=== PATIENT | female | born 1975 | race Caucasian/White ===

== ENCOUNTER 2020-06-21 14:45 | Outpatient (CLI) | payer OTHER, SELFPAY ==
--- NOTE | 2020-06-21 14:50 | MM_ITS ---
WS: [id number] BILATERAL DIGITAL SCREENING MAMMOGRAPHY WITH CAD CLINICAL INFORMATION: SCREENING HISTORY: Screening mammogram. No current complaints. COMPARISON: May 14, 2019 TECHNIQUE: Bilateral CC and MLO views. FINDINGS: Scattered fibroglandular densities bilaterally. No suspicious focal mass, asymmetry, calcifications, or architectural distortion. No evidence of malignancy. Previously described stable 9 mm asymmetric d ensity posterior depth superior left breast is stable. MM/[id number] IMPRESSION: BI-RADS: 2-Benign FOLLOW UP: 1 Year Follow-up Recommend return to annual screening mammography.
== END 2020-06-21 14:46 | disposition home or self-care (01) ==
LOC: RADSHAW 14:48
PROVIDERS: PCP Internal Medicine; Visit Provider Internal Medicine
DX: Z12.31 Encounter for screening mammogram for malignant neoplasm of breast (principal)
CPT/HCPCS: 77067

== ENCOUNTER 2021-07-27 13:16 | Outpatient (CLI) | payer OTHER, SELFPAY ==
--- NOTE | 2021-07-27 13:18 | MM_ITS ---
WS: [id number] BILATERAL SCREENING DIGITAL MAMMOGRAM WITH CAD HISTORY: SCREENING COMPARISON: 06/21/2020, 05/14/2019 and 04/15/2015 Bilateral CC and MLO views submitted. Computer aided detection analyzed. Breast composition: There are scattered areas of fibroglandular density. No suspicious masses, microc alcifications or architectural distortion. There is a nodule near 12:00 of the LEFT breast which is s table over multiple prior years. MM/[id number] IMPRESSION: BI-RADS: 2-Benign FOLLOW UP: 1 Year Follow-up
== END 2021-07-27 13:17 | disposition home or self-care (01) ==
LOC: RADSHAW 13:17
PROVIDERS: PCP Internal Medicine; Visit Provider Internal Medicine
DX: Z12.31 Encounter for screening mammogram for malignant neoplasm of breast (principal)
CPT/HCPCS: 77067

== ENCOUNTER 2022-08-10 11:55 | Outpatient (CLI) | payer OTHER, SELFPAY ==
--- NOTE | 2022-08-10 12:09 | MM_ITS ---
WS: [id number] BILATERAL SCREENING DIGITAL TOMOSYNTHESIS MAMMOGRAM WITH CAD HISTORY: SCREENING COMPARISON: 05/25/2017, 05/02/2017, 06/21/2020 and 07/27/2021 Bilateral CC and MLO views with tomosynthesis and synthetic mammography submitted. Computer aided det ection analyzed. Breast composition: There are scattered areas of fibroglandular density. No suspicious masses, microc alcifications or architectural distortion. Nodule at 12:00 mid LEFT breast has been stable since at l 2016. MM/[id number] IMPRESSION: BI-RADS: 2-Benign FOLLOW UP: 1 Year Follow-up
== END 2022-08-10 11:56 | disposition home or self-care (01) ==
LOC: RAD 11:57
PROVIDERS: PCP Internal Medicine; Visit Provider Nurse Practitioner Women's Health
DX: Z12.31 Encounter for screening mammogram for malignant neoplasm of breast (principal)
CPT/HCPCS: 77063; 77067

== ENCOUNTER → 2022-08-17 09:00 | Outpatient (BNVA) | payer OTHER, SELFPAY | PROVIDERS: PCP Internal Medicine; Visit Provider Nurse Practitioner Women's Health | DX: Z12.4 Encounter for screening for malignant neoplasm of cervix (principal) | CPT/HCPCS: 87624 ==

== ENCOUNTER 2023-08-13 07:52 | Outpatient (CLI) | payer OTHER, SELFPAY ==
--- NOTE | 2023-08-13 07:55 | MM_ITS ---
WS: [id number] SCREENING DIGITAL TOMOSYNTHESIS MAMMOGRAM WITH CAD HISTORY: SCREENING COMPARISON: 08/10/2022, 07/27/2021 and 05/14/2019 Bilateral CC and MLO with tomosynthesis views submitted. Synthetic mammography reviewed. Computer aid ed detection analyzed. Breast composition: There are scattered areas of fibroglandular density. No suspicious masses, microc alcifications or architectural distortion. New coarse cluster of calcifications in the medial LEFT br east at 9:00. Very benign in appearance. IMPRESSION: MM/[place] [id number] BI-RADS: 2-Benign FOLLOW UP: 1 Year Follow-up
== END 2023-08-13 07:53 | disposition home or self-care (01) ==
LOC: RAD 07:52
PROVIDERS: PCP Internal Medicine; Visit Provider Internal Medicine
DX: Z12.31 Encounter for screening mammogram for malignant neoplasm of breast (principal)
CPT/HCPCS: 77063; 77067

== ENCOUNTER → 2023-09-06 11:05 | Outpatient (BNVA) | payer OTHER, SELFPAY | PROVIDERS: PCP Internal Medicine; Visit Provider Nurse Practitioner Women's Health | DX: N93.9 Abnormal uterine and vaginal bleeding, unspecified (principal); Z13.21 Encounter for screening for nutritional disorder; Z01.419 Encounter for gynecological examination (general) (routine) without abnormal findings | CPT/HCPCS: 82306; 84443; 85025 ==

== ENCOUNTER → 2023-09-19 11:16 | Outpatient (BNVA) | payer OTHER, SELFPAY | PROVIDERS: PCP Internal Medicine; Visit Provider Nurse Practitioner Women's Health | DX: N93.9 Abnormal uterine and vaginal bleeding, unspecified (principal); N85.2 Hypertrophy of uterus; D25.1 Intramural leiomyoma of uterus; R93.89 Abnormal findings on diagnostic imaging of other specified body structures; N83.201 Unspecified ovarian cyst, right side | CPT/HCPCS: 76830 ==

== ENCOUNTER → 2023-09-28 14:03 | Outpatient (BNVA) | payer OTHER, SELFPAY | PROVIDERS: PCP Internal Medicine; Visit Provider Nurse Practitioner Women's Health | DX: N93.9 Abnormal uterine and vaginal bleeding, unspecified (principal) | CPT/HCPCS: 88305 ==

== ENCOUNTER 2023-11-20 19:01 | Observation (INO) | payer OTHER, SELFPAY ==
[2023-11-16 10:13] LABS: OR HCG Qualitative Urine Negative (Negative)
--- NOTE | 2023-11-16 10:19 | ANES.PREANE2 ---
Pre-Anesthetic Assessment Height/Weight: Height 1.63 m Operation Date: 11/20/23 14:10 Proposed Procedures p Total vaginal hysterectomy, bilateral salpingo-oophorectomy 48867, single incision sling 04867, N93.9,N85.2, N39.3(Not Applicable) - Chuy Riojas MD s Salpingo-Oophorectomy (Vaginal)(Not Applicable) - Chuy Riojas MD s Sling Single Incision Sling(Not Applicable) - Chuy Riojas MD Familial anesthetic complications: None Was Beta Annie taken within 24 hours: N/A Was Clonidine taken within 24 hours: N/A Last intake: > 8 hrs Social No alcohol and No tobacco Exam alert, oriented x 3, clear to auscultation bilaterally and regular rate & rhythm Airway Mallampati: Class II Dentition: full Musc/skel fibroids Anesthetic Plan ASA status: 2 Anesthesia: General Risk of > 500 ml blood loss (7ml/kg in children): No Medications/Allergies Home Medications Medication Instructions Recorded Confirmed Last Taken Type fexofenadine 180 mg tablet 180 mg PO DAILY 06/24/20 11/16/23 11/16/23 History (Vanessa Allergy) ibuprofen 800 mg tablet 800 mg PO TID PRN Pain 06/24/20 11/16/23 Unknown History multivitamin 1 tab PO DAILY 06/24/20 11/16/23 11/16/23 History norethindrone acetate 5 mg tablet 5 mg PO DAILY #90 tabs 09/28/23 11/16/23 11/16/23 Rx calcium carb-ergocalciferol (vit 1 tab PO DAILY 11/16/23 11/16/23 11/16/23 History D2) 600 mg calcium-200 unit tablet Allergies Allergy/AdvReac Type Severity Reaction Status Date / Time metronidazole [From Flagyl] Allergy rash Verified 11/16/23 09:30 [facility] Anesthesia Medical History No pertinent past medical history neghx: htn,dm,thyroid,dvt/pe PCP: Nancy Abnormal uterine bleeding Depression Anemia Surgical History Hx of dilation and curettage (~2003) of uterus-- 2003-Performed at [facility] Hx of breast biopsy (~09/2010) Left-- 09/2010- Performed at [facility] in [place], [place] Benign per pt Hx of bilateral breast reduction surgery (~11/2011) Performed in [place], [place] at [facility] Hx of tubal ligation (~10/02/06) Bilateral tubal ligation Dx: multiparity PP with unwanted fertility. Performed by Dr Geller at [facility] in [place], [place]. Hx of wisdom tooth extraction Family History Family/Other Diabetes Maternal Aunt, Maternal Uncle Grandfather Heart disease Maternal Stroke Maternal Mother Hypertension Denies family history of Colon cancer Ovarian cancer Hypercholesteremia Breast cancer Uterine cancer Thyroid disease Female Reproductive History Date of last menstrual period: 10/25/23 Data Anesthesia Cardiac Studies: No Data to Display
[2023-11-16 12:40] LABS: Basophils # 0.1 10^3/uL (0.0-0.1); Basophils % 0.8 %; Eosinophils # 0.1 10^3/uL (0.0-0.8); Hematocrit 41.4 % (36-47); Lymphocytes # 1.7 10^3/uL (0.8-4.8); Lymphocytes % 27.4 %; Mean Corpuscular HGB Conc 32.6 g/dL (30-55); Mean Corpuscular Hemoglobin 29.7 pg (27-33); Mean Corpuscular Volume 91.2 fl (85-98); Monocytes # 0.5 10^3/uL (0.2-0.9); Monocytes % 8.4 %; Neutrophils # 3.73 10^3/uL (1.8-7.7); Neutrophils % 61.1 %; Nucleated Red Blood Cells % 0 %; Platelet Count 227 10^3/cmm (157-399); Red Blood Count 4.54 10^6/uL (3.85-5.65); Red Cell Distribution Width 12.7 % (12.1-15.1)
[2023-11-16 13:03] LABS: Alanine Aminotransferase 29 U/L (0-33); Albumin Level 4.6 g/dL (3.5-5.2); Alkaline Phosphatase 80 U/L (35-105); Aspartate Amino Transferase 27 U/L (0-32); Blood Urea Nitrogen 8 mg/dL (6-20); Calcium 9.5 mg/dL (8.5-10.5); Carbon Dioxide 23 mmol/L (22-29); Chloride 105 mmol/L (98-107); Globulin 2.4 g/dL (1.3-4.6); Glomerular Filtration Rate 88.9 mL/min (90-130); Glucose 92 mg/dL (65-115); Osmolality Calculated 290 mOsm/kg (285-295); Sodium 141 mmol/L (136-145); Total Bilirubin 0.2 mg/dL (0.15-1.2)
[2023-11-16 22:20] LABS: Add Urine Microscopic? NO; Charge for UA Resulting for Rev
[2023-11-16 22:31] LABS: Bilirubin Urine Neg (Negative); Blood Urine Neg (Negative); Glucose Urine UA Norm (Normal); Ketones Urine Negative (Negative); Leukocyte Esterase Urine Negative (Negative); Nitrate Urine Negative (Negative); Protein Urine Neg (Negative); Specific Gravity, Urine 1.005 (1.005-1.030); Urine Appearance Clear (CLEAR); Urine Color Colorless (Yellow); Urobilinogen Urine Neg (Negative); pH Urine 6 (5-7)
[2023-11-20] VITALS (13 sets, daily range): BP systolic 105–158; BP diastolic 69–86; PULSE 74–93; RESP 10–18; TEMP 36.2–36.9; O2SAT 98–100; BMI 31.9
[2023-11-20 10:49] LABS: OR HCG Qualitative Urine Negative (Negative)
[2023-11-20] MEDS: sodium chloride 0.9% 500 ML IV (11:10)
[2023-11-20] MEDS: sodium chloride 0.9% 1,000 ML 30 ML IV (12:32)
--- NOTE | 2023-11-20 12:59 | W.PM.OPSUD ---
Surgery/Procedure H&P Update DATE OF PROCEDURE: November 20, 2023 DATE H&P PERFORMED: 11/12/23 H&P UPDATE INFORMATION: I have reviewed H&P completed within last 30 days, I have examined patient prior to procedure and No changes to prior documentation PREOP DIAGNOSIS: Abnormal uterine bleeding, uterine fibroid, stress incontinence PLANNED PROCEDURE: Operation Date: 11/20/23 12:05 Proposed Procedures p Total vaginal hysterectomy, bilateral salpingo-oophorectomy 25483, single incision sling 05969, N93.9,N85.2, N39.3(Not Applicable) - Chuy Riojas MD s Salpingo-Oophorectomy (Vaginal)(Not Applicable) - Chuy Riojas MD s Sling Single Incision Sling(Not Applicable) - Chuy Riojas MD
[2023-11-20] MEDS: ceFOXitin 2,000 MG in sodium chloride 0.9% (plus) 50 ML 100 MG IV (16:43)
[2023-11-20] MEDS: lidocaine-epi 2% PF 1:200,000 20 mL SDV XX (17:17)
--- NOTE | 2023-11-20 19:00 | P.OP_ITS ---
Operative Report Date of procedure: November 20, 2023 Pre-op diagnosis: Abnormal uterine bleeding Fibroid uterus Cystocele stage II Uterine prolapse stage II Stress urinary incontinence Post-op diagnosis: same Post-op findings: Enlarged uterus Procedure done: Total vaginal hysterectomy Anterior colporrhaphy Midurethral sling Implants: Coloplast Altis midurethral sling Specimens removed/disposition: Uterus Surgeon: Chuy Riojas MD Estimated blood loss (mL): 300 IV fluids (mL): 1,800 Urine output (mL): 200 Complications: bleeding Findings: Enlarged uterus Procedure: After informed consent and risks, benefits, indications and alternatives reviewed with the patient was taken to the operating room. The patient was placed in dorsal lithotomy position prepped, and draped in the usual sterile fashion. The pre-procedure timeout verifying the correct patient, procedure, site and side, could not requirements was performed and acknowledge by the OR team. A Montoya catheter was placed. A Bookwalter vaginal retractor was placed into the vagina in usual manner visualize the cervix. Cervix was grasped with a single tooth tenaculum and circumferentially infiltrated with 2% lidocaine with epinephrine. Then cervix was circumferentially incised with bovie and the bladder was dissected off the pubovesical cervical fascia anteriorly with a sponge stick and Metzenbaum scissors. The anterior peritoneal reflection was identified and the anterior cul-de-sac was entered sharply with Metzenbaum scissors. The same procedure was performed posteriorly and a posterior colpotomy was made through the posterior cul-de-sac space without difficulty and the posterior blade of the Bookwalter vaginal retractor was advanced posteriorly into the cul-de-sac. At this time, the left and right uterosacral ligaments were isolated and ligated with 0 Vicryl. The LigaSure device was placed over the uterosacral ligaments on either side and was then used in a serial fashion up through the cardinal ligaments bilaterally cross-clamped, cut, and sealed with the LigaSure device. Finally, the uterine arteries were cross-clamped, cut, sealed and ligated with the LigaSure device. Hemostasis was assured. The broad ligaments were then serially clamped, sealed and cut with the LigaSure device on both sides with great difficulty due uterine size causing some bleeding. Excellent hemostasis finally achived and was visualized. Both cornua were clamped, sealed and cut with the LigaSure device. Then the pedicles were then suture ligated with excellent hemostasis. The enlarged uterus was excised and submitted for pathologic evaluation. No other abnormalities were noted in the pelvic cavity. The peritoneum was then closed in a pursestring fashion with 0 Vicryl suture. The vaginal cuff angles were closed with [id number] #0 Vicryl suture on both sides and transfixed with the ipsilateral cardinal and uterosacral ligaments. The remainder of the vaginal cuff was closed with #0 Vicryl in a ru nning locked fashion. The anterior vaginal mucosa beneath the midurethra was infiltrated with 2% lidocaine with epinephrine. A vertical midline incision was made beneath the midurethra, nearly 1.5 cm length. Careful submucosal dissection was performed bilaterally up to the interior portion of the inferior pubic ramus. The insertion of adductor longus tendon on the patient?s pubic ramus was identified as reference land juana. Palpated the notch along the internal edge of ischiopubic ramus where the adductor longus tendon and the inferior pubic ramus meet. The needle of the SIS inserted aiming at the location of this notch. One of the integrated self-fixating tips place onto the needle by sliding it over the end of the needle. The needle/sling assembly was inserted toward the location of identified reference notch making sure that the flat of the handle is perpendicular to the desired path. The needle was tracked along the posterior surface of the ischiopubic ramus until the midline juana on the mesh is approximately at the midline position under the urethra. The needle was removed and the same was repeated on the contralateral side until the appropriate sling tension under the urethra was achieved ensuring that the mesh lays flat. The needle was removed and vaginal incision was closed in a running interlocking fashion with 2-0 Vicryl. An anterior repair was then performed. The medial portion of the anterior vaginal wall was grasped with two Allis clamps and the mucosa was infiltrated with the previous vasopressin solution. The Metzenbaum scissors were used to dissect and undermine a plane medially up to the point of reflexion anteriorly of the bladder. The vaginal mucosa was incised medially. This tissue was then grasped with [place] clamps and dissected away with a combination of sharp and blunt dissection on both sides. A suture of 2-0 vicryl was then used to connect the lateral pubovesical connective tissue on either side together in a series of bites that was repeated in two layers. The excess vaginal mucosa was trimmed and the incision repaired with a locked suture of 2-0 vicryl. Bludigo was given IV. At this time, instruments were removed from the vagina at hemostasis assured. Then the Montoya catheter was removed and cystoscope was inserted. The bladder was filled with sterile water. Complete evaluation of the bladder mucosa was performed noting no lacerations, dimpling, tears, bleeding of the mucosa or muscular layers. Both ureteral orifices were identified. Prompt excretion of urine from both ureteral orifices was noted. Cystoscope was withdrawn. Montoya catheter was then placed yielding clear blue/green urine. A vaginal packing was placed and the patient was taken out of dorsal lithotomy position and awakened from the general anesthesia. The patient tolerated the procedure well and was taken to the PACU recovery room in a stable condition. Sponge, lap, needle and instruments counts were correct x3.
--- NOTE | 2023-11-20 19:35 | ANE.PACU2 ---
Inpatient post-anesthesia follow up: Airway intact: Yes Vital signs: Temperature 98.1 F Pulse Rate 72 Respiratory Rate 15 Blood Pressure 129/76 Pulse Oximetry 98 Oxygen Delivery Me thod Room Air Oxygen Flow Rate 6 Fraction of Inspir ed Oxygen Hydration adequate: Yes Nausea and vomiting: No Pain level: 1 Mental status: Baseline
--- NOTE | 2023-11-20 19:46 | PC.NURSE ---
Provider called at 1942 with orders for CBC now and routine hemagram at 0500.
[2023-11-20 20:27] LABS: Basophils % 0.4 %; Eosinophils % 0.3 %; Hematocrit 38.8 % (36-47); Lymphocytes # 0.7 10^3/uL (0.8-4.8); Lymphocytes % 10.6 %; Mean Corpuscular Hemoglobin 29.7 pg (27-33); Mean Platelet Volume 9.2 fL (7.4-10.4); Monocytes # 0.1 10^3/uL (0.2-0.9); Monocytes % 1.9 %; Neutrophils # 5.78 10^3/uL (1.8-7.7); Neutrophils % 86.7 %; Nucleated Red Blood Cells % 0 %; Platelet Count 182 10^3/cmm (157-399); Red Blood Count 4.31 10^6/uL (3.85-5.65); Red Cell Distribution Width 11.9 % (12.1-15.1); White Blood Count 6.68 10^3/uL (3.29-11.43)
[2023-11-20] MEDS: HYDROcodone-acetaminophen 5-325 mg Tablet PO (21:33)
[2023-11-21 05:16] VITALS: BP 109/70; PULSE 67; RESP 15; TEMP 36.6; TEMP 36.7; O2SAT 99
[2023-11-21 05:21] LABS: Hematocrit 37.4 % (36-47); Mean Corpuscular HGB Conc 33.2 g/dL (30-55); Mean Corpuscular Hemoglobin 29.7 pg (27-33); Mean Corpuscular Volume 89.5 fl (85-98); Mean Platelet Volume 9.6 fL (7.4-10.4); Platelet Count 193 10^3/cmm (157-399); Red Blood Count 4.18 10^6/uL (3.85-5.65); Red Cell Distribution Width 11.9 % (12.1-15.1); White Blood Count 6.71 10^3/uL (3.29-11.43)
[2023-11-21] MEDS: ketorolac 30 mg/mL INJ IVP ×2 (06:37)
--- NOTE | 2023-11-21 09:50 | P.PN_ITS ---
Subjective 2 Subjective: Mrs. Leung 48-year-old female status post total vaginal hysterectomy, anterior colporrhaphy, and single incision mid urethral sling postoperative day 1. Refers pain under control. Vitals/I&O/Wt Last Vital Signs Temp 98.0 F 11/21/23 05:16 Pulse 67 11/21/23 05:16 Resp 15 11/21/23 05:16 BP 109/70 11/21/23 05:16 Pulse Ox 99 11/21/23 05:16 O2 Del Method Room Air 11/21/23 05:16 O2 Flow Rate 6 11/20/23 19:15 11/20/23 11/21/23 11/21/23 22:59 06:59 14:59 Intake Total 1450 / 1450 Output Total 700 / 700 950 / 1650 200 / 200 Balance 750 / 750 -950 / -200 -200 / -200 Weight last 48 hrs Weight 84.368 kg Physical Exam 2 Narrative: GA: Alert and oriented ?3. HEENT: WNL. Heart: Regular rate and rhythm. Lungs: Clear to auscultation bilaterally. Abdomen: Bowel sounds present, nontender, minimal tenderness, incision clean and dry, no redness, pain or edema. 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 Extremities: No edema, no cyanosis, no calves pain. Urinary Catheter Management: Montoya: Cath Placed During This Visit: yes, but has since been removed by the nurse Reason for Continuing Indwelling Catheter: Decision to DC Catheter Urinary Catheter Date of Insertion: 11/20/23 Urinary Catheter Time of Insertion: 17:11 Date Urinary Catheter Removed: 11/21/23 Time Urinary Catheter Discontinued: 05:07 Data 11/21/23 05:04 11/16/23 09:36 A&P Assessment and plan (1) Status post vaginal hysterectomy: Mrs. Leung 48-year-old female with a history of abnormal uterine bleeding, uterine fibroid, cystocele, stress urinary incontinence and uterine prolapse. Status post total vaginal hysterectomy with anterior colporrhaphy and single incision mid urethral sling. Postoperative day 1. She is afebrile and hemodynamically stable. Overnight observation uneventful. PVR within normal limits. Tolerating diet well. Ambulating without difficulty. Plan Postop observation Attestations 2 Medical Necessity Statement*: In my professional opinion per admitting diagnosis Coding Level of Care Code Acute Code for Chg Fwd Diagnoses Status post vaginal hysterectomy Z90.710
[2023-11-21] MEDS: docusate sodium 100 mg Capsule PO (10:21)
[2023-11-21] MEDS: multivitamin therapeutic Tablet 1 TAB PO (10:21)
[2023-11-21 10:22] VITALS: BP 129/76; PULSE 72; RESP 15; TEMP 36.7; O2SAT 98
[2023-11-21] MEDS: ibuprofen 800 mg tablet PO (14:15)
[2023-11-21 16:00] VITALS: BP 113/66; PULSE 71; RESP 17; TEMP 37.1; O2SAT 98
--- NOTE | 2023-11-21 19:18 | PM.OBGYDC ---
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 Leung 48-year-old female with a history of abnormal uterine bleeding unresponsive to medical management, uterine fibroid, urinary stress incontinence, and cystocele stage II. She was admitted for planned total vaginal hysterectomy with anterior colporrhaphy and single incision mid urethral sling. The procedures were performed complicated with moderate bleeding, due to enlarged uterus. Postop observation has been uneventful. She is afebrile and hemodynamically stable postoperative day 1. Tolerating diet well. Ambulating without difficulty. Pain well under control. PVR within normal limits. She was counseled regarding pelvic rest for 6 weeks (no sex, no tampons, no vaginal douches). Return to the emergency room if any fever, increased bleeding or pain. I spent 30 minutes with the patient in discussion and counseling as documented above This documentation was created by Connect business systems developer software (known for inherent business systems developer error). Every effort was made to assure accuracy of business systems developer. But this EMR does not have a spell check with medical dictionary. Physical Exam Narrative: GA: Alert and oriented ?3. HEENT: WNL. Heart: Regular rate and rhythm. Lungs: Clear to auscultation bilaterally. Abdomen: Bowel sounds present, nontender, minimal tenderness, incision clean and dry, no redness, pain or edema. 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 Extremities: No edema, no cyanosis, no calves pain. Urinary Catheter Management: Montoya: Cath Placed During This Visit: yes, but has since been removed by the nurse Reason for Continuing Indwelling Catheter: Decision to DC Catheter Urinary Catheter Date of Insertion: 11/20/23 Urinary Catheter Time of Insertion: 17:11 Date Urinary Catheter Removed: 11/21/23 Time Urinary Catheter Discontinued: 05:07 History History History 3 Term 3 0 Miscarriages/Ectopic 0 Living Children 3 Discharge Data Studies Completed and Pending Pending at discharge Category Date Time Status Pathology: Surgical [PTH] Routine Pth 11/20/23 19:01 Received Laboratory Results WBC 6.71 10^3/uL (3.29-11.43) 11/21/23 05:04 RBC 4.18 10^6/uL (3.85-5.65) 11/21/23 05:04 Hgb 12.40 g/dL (11.27-16.99) 11/21/23 05:04 Hct 37.4 % (36-47) 11/21/23 05:04 MCV 89.5 fl (85-98) 11/21/23 05:04 MCH 29.7 pg (27-33) 11/21/23 05:04 MCHC 33.2 g/dL (30-55) 11/21/23 05:04 RDW 11.9 % (12.1-15.1) L 11/21/23 05:04 Plt Count 193 10^3/cmm (157-399) 11/21/23 05:04 MPV 9.6 fL (7.4-10.4) 11/21/23 05:04 Neut % (Auto) 86.7 % 11/20/23 20:12 Lymph % (Auto) 10.6 % 11/20/23 20:12 [place] % (Auto) 1.9 % 11/20/23 20:12 Eos % (Auto) 0.3 % 11/20/23 20:12 Baso % (Auto) 0.4 % 11/20/23 20:12 Neut # (Auto) 5.78 10^3/uL (1.8-7.7) 11/20/23 20:12 Lymph # (Auto) 0.7 10^3/uL (0.8-4.8) L 11/20/23 20:12 [place] # (Auto) 0.1 10^3/uL (0.2-0.9) L 11/20/23 20:12 Eos # (Auto) 0.0 10^3/uL (0.0-0.8) 11/20/23 20:12 Baso # (Auto) 0.0 10^3/uL (0.0-0.1) 11/20/23 20:12 Nucleated RBC % (auto) 0 % 11/20/23 20:12 Nucleated RBCs # 0.0 /100WBC 11/20/23 20:12 Sodium 141 mmol/L (136-145) 11/16/23 09:36 Potassium 4.0 mmol/L (3.5-5.1) 11/16/23 09:36 Chloride 105 mmol/L (98-107) 11/16/23 09:36 Carbon Dioxide 23 mmol/L (22-29) 11/16/23 09:36 Anion Gap 17.0 (5-19) 11/16/23 09:36 BUN 8 mg/dL (6-20) 11/16/23 09:36 Creatinine 0.7 mg/dL (0.5-0.9) 11/16/23 09:36 GFR Calculation 88.9 mL/min (90-130) L 11/16/23 09:36 Glucose 92 mg/dL (65-115) 11/16/23 09:36 Calculated Osmolality 290 mOsm/kg (285-295) 11/16/23 09:36 Calcium 9.5 mg/dL (8.5-10.5) 11/16/23 09:36 Total Bilirubin 0.2 mg/dL (0.15-1.2) 11/16/23 09:36 AST 27 U/L (0-32) 11/16/23 09:36 ALT 29 U/L (0-33) 11/16/23 09:36 Alkaline Phosphatase 80 U/L (35-105) 11/16/23 09:36 Total Protein 7.0 g/dL (6.6-8.7) 11/16/23 09:36 Albumin 4.6 g/dL (3.5-5.2) 11/16/23 09:36 Globulin 2.4 g/dL (1.3-4.6) 11/16/23 09:36 Urine Color Colorless (Yellow) 11/16/23 09:27 Urine Appearance Clear (CLEAR) 11/16/23 09:27 Urine pH 6 (5-7) 11/16/23 09:27 Ur Specific [place] 1.005 (1.005-1.030) 11/16/23 09:27 Urine Protein Neg (Negative) 11/16/23 09:27 Urine Glucose (UA) Norm (Normal) 11/16/23 09:27 Urine Ketones Negative (Negative) 11/16/23 09: Urine Blood Neg (Negative) 11/16/23: Urine Nitrate Negative (Negative) 03/15/24 09:27 Urine Bilirubin Neg (Negative) 11/16/23 09:27 Urine Urobilinogen Neg mg/dL (Negative) 11/16/23 09:27 Ur Leukocyte Esterase Negative (Negative) 11/16/23 09:27 Urine HCG, Qual Negative (Negative) 11/20/23 10:48 Blood Type A Negative 11/20/23 10:50 Rho(D) Type Rh negative 11/20/23 10:50 Antibody Screen Negative 11/20/23 10:50 Vitals Last Vital Signs Temp 98.8 F 11/21/23 16:00 Pulse 71 11/21/23 16:00 Resp 17 11/21/23 16:00 BP 113/66 11/21/23 16:00 Pulse Ox 98 11/21/23 16:00 O2 Del Method Room Air 11/21/23 16:00 O2 Flow Rate 6 11/20/23 19:15 Results Labs OB ([facility]): Blood Type A Negative 11/20/23 Antibody Screen Negative 11/20/23 Hct 37.4 % (36-47) 11/21/23 Hgb 12.40 g/dL (11.27-16.99) 11/21/23 Rho(D) Type Rh negative 11/20/23 Plt Count 193 10^3/cmm (157-399) 11/21/23 TSH 0.88 uIU/mL (0.27-4.20) 09/06/23 Hemoglobin A1c 5.6 % (4.0-6.0) 09/28/21 Pap Smear Interpret See note 08/17/22 Discharge Plan Discharge Patient Disposition: Home Condition: Stable Prescriptions: New hydrocodone-acetaminophen 5-325 mg tablet 1 tab PO Q4H PRN (Reason: pain) Qty: 20 0RF acetaminophen 325 mg capsule 325 mg PO Q4H PRN (Reason: fever or postoperative pain) Qty: 60 0RF ibuprofen 800 mg tablet 800 mg PO TID PRN (Reason: pain) Qty: 60 0RF Continued multivitamin Tablet 1 tab PO DAILY fexofenadine [Vanessa Allergy] 180 mg tablet 180 mg PO DAILY ibuprofen 800 mg tablet 800 mg PO TID PRN (Reason: Pain) norethindrone acetate 5 mg tablet 5 mg PO DAILY Qty: 90 0RF Rx Instructions: start at completion of the estradiol Calcium + Vitamin D 600 mg calcium- 200 unit Tablet 1 tab PO DAILY Discharge Orders: Discharge Order (Routine); Ordered 11/21/23 Ordered By: Chuy Riojas Referrals: Chuy Riojas MD [Physician] - 2 weeks Discharge Diet: Usual diet Discharge Activity: Limit activity as instructed Patient Instructions: Bladder Sling for Women (GEN), Vaginal Hysterectomy (GEN), Anterior Vaginal Repair (GEN), Opioid Safety Activity Restrictions/Additional Instructions: 1. Please call [facility] clinic on next working day to make your post-operative appointment in 2 weeks. 2. Please stay home until you come back to the clinic on first post-hospatilization check up. 3. Please follow instructions on your medications CAREFULLY. 4. If you have abdominal incision, do not cover it unless dressing is necessary because of drainage. OK to shower, but avoid bath. Leave steri-strips until they fall off. If they are still on one week after surgery, you may remove them. 5. If you had vaginal surgery or vaginal repair, Dr. Riojas may instruct you to take SITZ bath. 6. Yellow, blood tinged odorous vaginal discharge is usually normal after hysterectomy or vaginal surgeries. 7. No SEXUAL INTERCOURSE, tampons, or douches until you are completely released from the post-operative care. 8. Avoid constipation by eating right and maybe using some Metamucil or Milk of Magnesia. 9. All prescription refills are given during the working hours. Please do no wait till it runs out. Call the clinic at [phone] before your medication runs out. The clinic will get in touch with your doctor to prescribe medications if necessary. 10. Please remain within 40 mile radius from our hospital because emergencies do happen now and then during the post-operative period. 11. If you have stairs at home, take one step at a time slowly and minimize the number of trips. It helps to stay in one floor for the next few days. No lifting except what you can lift by one hand until you are released from the post-operative care. 12. Driving is discouraged until you are well healed. It may be 3-4 weeks before you feel strong enough to drive. You should be able to turn and look through the rear window without pain and you should be able to push the brake pedal very hard without pain before you drive. No fast rules, but SAFETY should be your primary concern. DO NOT drive if you are on sedating medications such as narcotics. 13. Call the clinic (during working hours) to make urgent appointment or go to the Emergency room, if any of the following occurs: i. Vaginal bleeding becomes heavy, more than a period. ii. Incision becomes red and sore, or drains pus. iii. Your TEMPERATURE is over 100.4F or you have chill. iv. IV site becomes red and swollen (a little ``knot?? is usually OK) v. Persistent nausea and vomiting vi. Persistent constipation or diarrhea vii. Rash or allergic reaction to medications. 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
[2023-11-21 19:39] VITALS: BP 121/77; PULSE 70; RESP 17; TEMP 36.9; O2SAT 97
== END 2023-11-21 19:45 | disposition home or self-care (01) ==
LOC: OBGYN 19:02
PROVIDERS: Anesthesiology; Admitting Provider Obstetrics & Gynecology; PCP Internal Medicine; Visit Provider Obstetrics & Gynecology
PROC: (CPT 57240; principal; 2023-11-20 11:55)
PROC: (CPT 57288; 2023-11-20 11:55)
DX: N81.2 Incomplete uterovaginal prolapse (principal); D25.9 Leiomyoma of uterus, unspecified; N39.3 Stress incontinence (female) (male); N72 Inflammatory disease of cervix uteri
CPT/HCPCS: 57240; 57288; 58260; 36415; 51798; 80053; 81003; 81025; 84703; 85025; 85027; 86850; 86900; 88307; C1713; G0378; J0131; J0330; J0694; J1100; J1170; J1200; J1885; J2250; J2371; J2405; J2704; J3010; J3490; J7030; J7040

== ENCOUNTER → 2023-12-06 11:00 | Outpatient (BNVA) | payer OTHER, SELFPAY | PROVIDERS: PCP Internal Medicine; Visit Provider Nurse Practitioner Women's Health | DX: N39.3 Stress incontinence (female) (male) (principal); Z48.816 Encounter for surgical aftercare following surgery on the genitourinary system | CPT/HCPCS: 84315; 87086 ==

== ENCOUNTER → 2024-05-22 12:07 | Outpatient (BNVA) | payer OTHER, SELFPAY | PROVIDERS: PCP Internal Medicine; Visit Provider Nurse Practitioner Women's Health | DX: R23.2 Flushing (principal); G24.5 Blepharospasm | CPT/HCPCS: 84439; 84443; 85025 ==

== ENCOUNTER → 2024-08-07 09:13 | Outpatient (BNVA) | payer OTHER, SELFPAY | PROVIDERS: PCP Family Medicine; Visit Provider Family Medicine | DX: Z13.6 Encounter for screening for cardiovascular disorders (principal) | CPT/HCPCS: 80061 ==

== ENCOUNTER 2024-08-28 07:50 | Outpatient (CLI) | payer OTHER, SELFPAY ==
--- NOTE | 2024-08-28 07:56 | MM_ITS ---
WS: [id number] BILATERAL SCREENING DIGITAL TOMOSYNTHESIS MAMMOGRAM WITH CAD HISTORY: SCREENING COMPARISON: 06/21/2020, 07/27/2021, 08/13/2023 and 08/10/2022 Bilateral CC and MLO views with tomosynthesis and synthetic mammography submitted. Computer aided det ection analyzed. Breast composition: There are scattered areas of fibroglandular density. No suspicious masses, microc alcifications or architectural distortion. Long-term stable 5 mm mass noted in the central LEFT breas t near 12:00. This mass has been present on prior examinations without increase in size. MM/MM scr BI tomosynthesis [id number] IMPRESSION: BI-RADS: 2 - Benign. FOLLOW UP: 1 Year Follow-up
== END 2024-08-28 07:51 | disposition home or self-care (01) ==
LOC: RAD 07:51
PROVIDERS: PCP Family Medicine; Visit Provider Family Medicine
DX: Z12.31 Encounter for screening mammogram for malignant neoplasm of breast (principal); R92.323 Mammographic fibroglandular density, bilateral breasts; N63.22 Unspecified lump in the left breast, upper inner quadrant
CPT/HCPCS: 77063; 77067

== ENCOUNTER 2024-09-16 07:51 | Day surgery (SDC) | payer OTHER, SELFPAY ==
[2024-09-16 08:08] VITALS: BP 115/84; PULSE 87; RESP 16; TEMP 36.3; O2SAT 97
[2024-09-16] MEDS: sodium chloride 0.9% 500 ML 15 ML IV (08:12)
--- NOTE | 2024-09-16 08:35 | ANES.PREANE2 ---
Pre-Anesthetic Assessment Height/Weight: Height 1.63 m Weight 86.183 kg Temp Pulse Resp BP Pulse Ox O2 Del Method 97.3 F L 87 16 115/84 97 Room Air 09/16/24 08:08 09/16/24 08:08 09/16/24 08:08 09/16/24 08:08 09/16/24 08:08 09/16/24 08:08 Preop Diagnosis: Screening Operation Date: 09/16/24 09:15 Proposed Procedures p Colonoscopy 31191, G0121, Z12.11(Not Applicable) - Lui Patel MD Was Beta Annie taken within 24 hours: N/A Was Clonidine taken within 24 hours: N/A Last intake: Intake Last Liquid Date 09/15/24 Last Liquid Time 22:00 Last Solid Date 09/14/24 Last Solid Time 20:00 Social No alcohol and No tobacco Exam alert, oriented x 3, clear to auscultation bilaterally and regular rate & rhythm Airway Submandibular: within normal limits Cervical ROM: within normal limits Mallampati: Class II Dentition: full History/ROS No significant history except as noted and No significant complaints Pulmonary None reported CV/HEM None reported None reported Hepatic None reported GI None reported Metabolic None reported Musc/skel None reported Neuropsych None reported Anesthetic Plan ASA status: 1 Anesthesia: Anesthesia Evaluation and MAC Risk of > 500 ml blood loss (7ml/kg in children): No Medications/Allergies Home Medications Medication Instructions Recorded Confirmed Last Taken Type multivitamin 1 tab PO DAILY 06/24/20 09/11/24 09/15/24 History acetaminophen 325 mg capsule 325 mg PO Q4H PRN fever or 11/21/23 09/11/24 09/15/24 Rx postoperative pain #60 caps ibuprofen 800 mg tablet 800 mg PO TID PRN pain #60 tabs 11/21/23 09/11/24 09/15/24 Rx cholecalciferol (vitamin D3) 25 25 mcg PO DAILY 06/19/24 09/11/24 09/15/24 History mcg (1,000 unit) capsule fexofenadine 180 mg tablet 180 mg PO ONCE PRN allergies 06/19/24 09/11/24 09/15/24 History (Vanessa Allergy) methylcellulose (laxative) 500 mg 500 mg PO DAILY 06/19/24 09/11/24 09/15/24 History tablet (Fiber Laxative (methylcellulose)) progesterone micronized 200 mg 200 mg PO BEDTIME #90 caps 06/19/24 09/11/24 09/15/24 Rx capsule (Prometrium) estradiol 0.0375 mg/24 hr 1 patch transdermal .twice weekly 07/15/24 09/11/24 09/15/24 Rx semiweekly transdermal patch #24 ea niacin 500 mg tablet 500 mg PO DAILY 08/19/24 09/11/24 09/15/24 History Allergies Allergy/AdvReac Type Severity Reaction Status Date / Time metronidazole [From Flagyl] Allergy rash Verified 09/11/24 10:05 Current Medications Generic Name Dose Route Start Last Admin Trade Name Freq PRN Reason Stop Dose Admin Sodium Chloride 500 mls @ 15 mls/hr 09/16/24 08:04 09/16/24 08:12 Sodium Chloride 0.9% IV 09/17/24 08:03 15 mls/hr .Q24H PRN Administration COLONOSCOPY FLUIDS PFSH Anesthesia Medical History Postmenopausal hormone replacement therapy No pertinent past medical history neghx: htn,dm,thyroid,dvt/pe PCP: Nancy Surgical History History of hysterectomy (~11/20/23) Total vaginal hysterectomy, anterior colporrhaphy, mid urethral sling performed by Dr. Riojas for abnormal uterine bleeding, stage II cystocele, uterovaginal prolapse, stress urinary incontinence, fibroid uterus. Benign pathology. Hx of dilation and curettage (~2003) of uterus-- 2003-Performed at [facility] in [place] Hx of breast biopsy (~09/2010) Left-- 09/2010- Performed at [facility] in [place], [place] Benign per pt Hx of bilateral breast reduction surgery (~11/2011) Performed in [place], [place] at [facility] Hx of tubal ligation (~10/02/06) Bilateral tubal ligation Dx: multiparity PP with unwanted fertility. Performed by Dr Geller at [facility] in [place], [place]. Hx of wisdom tooth extraction Family History Family/Other Diabetes Maternal Aunt, Maternal Uncle Grandfather Heart disease Maternal Stroke Maternal Mother Hypertension Father Prostate cancer Grandmother Alzheimer's dementia paternal Denies family history of Colon cancer Ovarian cancer Hypercholesteremia Breast cancer Uterine cancer Thyroid disease Social History Smoking and tobacco/nicotine status: never used tobacco/nicotine Quit status (tobacco/nicotine): quit date established Alcohol intake: current Alcohol intake frequency: holidays/special occasions only Substance/Drug Use: never Household members: spouse and children Marital status: Number of children: 3 Highest education level completed: Master's Degree Current occupational status: employed 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
--- NOTE | 2024-09-16 08:43 | W.PM.OPSUD ---
Surgery/Procedure H&P Update DATE OF PROCEDURE: September 16, 2024 DATE H&P PERFORMED: 08/19/24 H&P UPDATE INFORMATION: I have reviewed H&P completed within last 30 days, I have examined patient prior to procedure, No changes to prior documentation and H&P is in [facility] EMR on date indicated PREOP DIAGNOSIS: Screening PLANNED PROCEDURE: Operation Date: 09/16/24 09:15 Proposed Procedures p Colonoscopy 48634, G0121, Z12.11(Not Applicable) - Lui Patel MD
[2024-09-16 08:59] VITALS: BP 112/79; PULSE 80; RESP 16; TEMP 36.3; O2SAT 96
[2024-09-16 09:16] VITALS: BP 121/84; PULSE 75; RESP 16; O2SAT 95
--- NOTE | 2024-09-16 09:45 | ANE.PACU2 ---
Inpatient post-anesthesia follow up: Airway intact: Yes Vital signs: Temperature 97.3 F Pulse Rate 75 Respiratory Rate 16 Blood Pressure 121/84 Pulse Oximetry 95 Oxygen Delivery Me thod Room Air Oxygen Flow Rate Fraction of Inspir ed Oxygen Hydration adequate: Yes Nausea and vomiting: No Pain level: 1 Mental status: Baseline
== END 2024-09-16 09:45 | disposition home or self-care (01) ==
PROVIDERS: PCP Family Medicine; Visit Provider Surgery
PROC: 0DJD8ZZ Inspection of Lower Intestinal Tract, Via Natural or Artificial Opening Endoscopic (ICD-10-PCS; CPT 45378; principal; 2024-09-16 09:15)
DX: Z12.11 Encounter for screening for malignant neoplasm of colon (principal)
CPT/HCPCS: 45378; J2704; J7040

== ENCOUNTER → 2025-01-29 14:37 | Outpatient (BNVA) | payer OTHER, SELFPAY | PROVIDERS: PCP Family Medicine; Visit Provider Family Medicine | DX: R53.83 Other fatigue (principal) | CPT/HCPCS: 80053 ==

== ENCOUNTER → 2025-04-22 10:32 | Outpatient (BNVA) | payer OTHER, SELFPAY | PROVIDERS: PCP Family Medicine; Visit Provider Nurse Practitioner Women's Health | DX: Z79.890 Hormone replacement therapy (principal) | CPT/HCPCS: 82670 ==

== ENCOUNTER 2025-08-31 09:08 | Outpatient (CLI) | payer OTHER, SELFPAY ==
--- NOTE | 2025-08-31 09:20 | MM_ITS ---
WS: [id number] BILATERAL SCREENING DIGITAL TOMOSYNTHESIS MAMMOGRAM WITH CAD HISTORY: Z12.31 - Encounter for screening mammogram for malignant ... COMPARISON: None available. Bilateral CC and MLO views with tomosynthesis and synthetic mammography submitted. Computer aided detection analyzed. Breast composition: There are scattered areas of fibroglandular density. No suspicious masses, microcalcifications or architectural distortion. Asymmetries in the central LEFT breast in the retroareolar location are stable over multiple prior exams. No suspicious mass or new calcifications. MM/MM scr tomosynthesis [id number] IMPRESSION: BI-RADS: 2 - Benign. FOLLOW UP: 1 Year Follow-up
== END 2025-08-31 09:09 | disposition home or self-care (01) ==
LOC: RAD 09:09
PROVIDERS: PCP Family Medicine; Visit Provider Nurse Practitioner Women's Health
DX: Z12.31 Encounter for screening mammogram for malignant neoplasm of breast (principal); R92.323 Mammographic fibroglandular density, bilateral breasts; N64.89 Other specified disorders of breast
CPT/HCPCS: 77063; 77067